=== PATIENT | female | born 1940 | race Caucasian/White ===

== ENCOUNTER 2019-12-24 20:48 | Inpatient (IN) | payer OTHER, SELFPAY ==
[2019-12-24 18:29] VITALS: BP 145/86
--- NOTE | 2019-12-24 18:52 | ED.GENMED ---
Addendum entered and electronically signed by Radha Gracia STPA 12/28/19 22:28:
Signed chart - Radha COOK
Original Note:
History of Present Illness
- General
Chief Complaint: Rectal Bleeding
Source: patient
Exam Limitations: none
Time Seen by Provider: 12/24/19 18:33
Nursing documentation reviewed up to this point in time: agreed with
- Travel History
Have you traveled to any high risk areas for coronavirus: No
Have you had any contact with someone who has COVID-19?: No
Do you have any symptoms of coronavirus? Fever > 100 degrees: No
- History of Present Illness
History of Present Illness:
12/24/19 18:52
This is a 79-year-old female with a history of hypertension and lactose intolerance he states that she went out to lunch 2 days ago and ate a [place] cheese quiche. Her friend also had the same food and did not get ill. Later that evening she
developed abdominal cramping and had a small bloody stool. She states that the stool was soft and not lisa diarrhea and she was having crampy right and left lower quadrant abdominal pain. Came to the ED last night and complained of abdominal
cramping and bloody stool and had unremarkable labs and underwent a CT scan of her abdomen pelvis which was consistent with colitis bowel wall thickening of the descending transverse and sigmoid colon with inflammatory stranding. She also had a
stool obtained which was sent for culture. She admits that she had been treated for a urinary tract infection 6-8 weeks ago with antibiotics. She denied a history of colitis and had her last colonoscopy 9 years ago which was unremarkable. Today she
called her doctor with persistent bloody stools and he recommended a prescription for moxifloxacin which she has started and has taken one dose. Last night she was put on pantoprazole. She denies any fever or chills. She denies any recent travel.
She has been able to hold down fluids.
12/24/19 18:54
Past History
- Past History
ED Past Medical History: Fibromyalgia, Other (Depression, anxiety, hypertension, hyperlipidemia, anemia, lactose intolerance.)
ED Past Surgical History: None
- Social History
Tobacco: Non-smoker
Alcohol: None
Drug: None
Personal:
Living: with family
- Family History
Family History: Other. Negative: Diabetes, Hypertension, CAD
Review of Systems
- Review of Systems
All Other Systems: ROS reviewed and negative except as documented in HPI and ROS
Constitutional: Reports: chills. Denies: fever
Respiratory: Reports: no symptoms
Cardiac: Reports: no symptoms
ABD/GI: Reports: abdominal pain, bloody stools
: Reports: no symptoms
Phy Exam
- General Physical Exam
General Presentation: mild distress
General age: appears stated age
General Skin: warm
General Habitus: normal
General Mental: alert
- Eye Exam
Eye Exam: EOMI
- Cardiovascular Exam
Cardiovascular Exam: regular rate/rhythm, no edema, no gallop, no JVD, no murmur
- Pulmonary Exam
Pulmonary Exam: lungs clear, no respiratory distress, no rales, no wheezing
- Gastrointestinal Exam
Gastrointestinal Exam: normal bowel sounds, soft, other (Tenderness to palpation in all 4 quadrants but particularly left upper quadrant with questionable guarding questionable rebound)
- Neurological Exam
Neurological Exam: alert, no motor deficits, speech normal
- Skin Exam
Skin Exam: no rash
- Psychiatric Exam
Psychiatric Exam: normal mood/affect
Course
- *Covid-19 Testing
COVID-19 Testing: No
- Orders/Labs/Results
Orders:
Orders
12/24/19 18:52
STOOL [C difficile Antigen & Toxins] Urgent
JASMYN Source: Feces/Stool
Specimen Description:
0.9% Sodium Chloride 1000 ml [Nss] 1,000 ml IV BOLUS
12/24/19 19:15
Complete Blood Count/With Diff Urgent
Comprehensive Metabolic Panel Urgent
12/24/19 19:35
Admit/Transfer Patient As Directed
Level of Care: Inpatient admission
Assign to:: Telemetry
Physician / Group: Drew Nichols
Diagnosis: Sigmoid colitis, Blood in stool
Reason for Telemetry: Arrhythmia
Date to Stop Telemetry: 12/27/19
Time to Stop Telemetry: 11:00
Reason for Hospitalization: Sigmoid colitis, Blood in stool
Expected length of stay greater than two midnights?: Yes
ELOS- Estimated Length of Stay in days: 2
I certify the patient meets the requirements for IP care: Yes
12/24/19 19:38
EKG [Electrocardiogram (*1)] Routine
Reason for Study: QTc Monitoring
12/24/19 19:42
Add On- LAB Routine
Tests Added?: Lactic acid
12/24/19 20:00
LevoFLOXacin 500 MG/100 ML [Levaquin] 500 mg in 100 ml IV Q24H
MetroNIDAZOLE 500 MG/100 ML [Flagyl 500 mg] 100 ml IV Q8H
12/27/19 11:00
DC Protocol for Telemetry ONCE
Abnormal Lab Results
12/24/19 12/24/19
19:15 19:15
WBC 15.6 10^3/uL H 10^3/uL
(4.8-10.8)
Plt Count 109 10^3/uL L 10^3/uL
(130-400)
MPV 11.0 fL H fL
(7.4-10.4)
Abs Immat Gran (auto) 0.2 10^3/uL H 10^3/uL
(0-0.05)
Absolute Neuts (auto) 12.6 10^3/uL H 10^3/uL
(1.4-6.5)
Absolute Lymphs (auto) 0.9 10^3/uL L 10^3/uL
(1.2-3.4)
Absolute Monos (auto) 1.8 10^3/uL H 10^3/uL
(0.1-0.6)
Immature Gran % 1.5 % H %
(0-0.5)
Neutrophils % 81.1 % H %
(42.2-75.2)
Lymphocytes % 5.8 % L %
(20.5-51.1)
Monocytes % 11.4 % H %
(1.7-9.3)
Glucose 129 mg/dl H mg/dl
(65-99)
Total Protein 6.2 g/dl L g/dl
(6.3-8.2)
12/24/19 19:15
12/24/19 19:15
12/24/19 19:47
WBC is elevated 15,600. H&H is stable. Platelets are normal
- *Radiology
Radiology exam reviewed: CT Scan report reviewed (CT scan from last evening consistent with colitis with inflammatory stranding and wall thickening of the transverse descending and sigmoid colon)
- *Pulse Oximetry
Patient hypoxic: no
- *EKG Interpretation by ED Provider
Rate: EKG- N/A
- *Critical Care Note
Total Time (30-74mins, 75-104mins- exclusive of procedures): Not Applicable
- *Staff Nuclear Weapons Officer Intrepretation
Rate: Staff Nuclear Weapons Officer- N/A
- Vital Signs
Initial and Last Documented VS:
Initial Vital Signs
Temp Pulse Resp BP Pulse Ox
99.7 F 104 20 145/86 98
12/24/19 18:29 12/24/19 18:29 12/24/19 18:29 12/24/19 18:29 12/24/19 18:29
Last Documented Vital Signs
Temp Pulse Resp BP Pulse Ox
99.7 F 104 20 145/86 98
12/24/19 18:29 12/24/19 18:29 12/24/19 18:29 12/24/19 18:29 12/24/19 18:29
Medical Decision/Update
- Medical Decison/Update
Notes:
She has persistent bloody stools and persistent abdominal cramping and diffuse tenderness. She has systemic symptoms without fever. I will recommend admission to the hospital for IV antibiotics and hydration. This could be C. difficile since she had
antibiotics for UTI approximately 6 weeks ago. It could be another bacterial pathogen.
Departure
- Departure
Final Disposition: Admit
Date of Disposition: 12/24/19
Time of Disposition: 19:18
Admit to: Med/Surg
Admit to doctor: Dr Drew Nichols
Patient with high blood pressure during this ER visit?: No
Condition: Good
Covid-19: Not Applicable
Diagnosis:
acute colitis with rectal bleeding
[2019-12-24 19:12] VITALS: BMI 36.6
[2019-12-24] MEDS: NSS 1000 IV (19:15)
[2019-12-24 19:23] LABS: % Basophils 0.1 % (0-2); % Eosinophils 0.1 % (0-6); % Immature Granulocytes 1.5 % (0-0.5); % Lymphocytes 5.8 % (20.5-51.1); % Monocytes 11.4 % (1.7-9.3); % Neutrophils 81.1 % (42.2-75.2); Absolute Immature Granulocytes 0.2 10^3/uL (0-0.05); Absolute Lymphocytes 0.9 10^3/uL (1.2-3.4); Absolute Monocytes 1.8 10^3/uL (0.1-0.6); Absolute Neutrophils 12.6 10^3/uL (1.4-6.5); Hematocrit 41.2 % (37.0-47.0); Hemoglobin 13.7 g/dL (12.0-16.0); Mean Corp Hgb Conc. 33.3 g/dL (33.0-37.0); Mean Corpuscular Volume 87.1 fL (81.0-99.0); Nucleated Red Blood Cells % 0 %; Platelet Count 109 10^3/uL (130-400); Red Blood Cell Count 4.73 10^6/uL (4.20-5.40); Red Cell Dist. Width 14.3 % (11.5-14.5); White Blood Cell Count 15.6 10^3/uL (4.8-10.8)
[2019-12-24 19:34] LABS: ALT (SGPT) 30 U/L (0-35); AST (SGOT) 33 U/L (14-36); Albumin 4.1 g/dl (3.5-5.0); Alkaline Phosphatase 75 U/L (38-126); Blood Urea Nitrogen 13 mg/dl (7-17); Calcium 8.8 mg/dl (8.4-10.2); Carbon Dioxide 25 mmol/L (22-30); Chloride 103 mmol/L (98-107); Estimated Creatinine Clearance 64 ml/min; Glomerular Filtration Rate > 60.0; Glucose 129 mg/dl (65-99); Potassium 3.8 mmol/L (3.5-5.1); Sodium 136 mmol/L (135-145); Total Bilirubin 0.8 mg/dl (0.2-1.3); Total Protein 6.2 g/dl (6.3-8.2)
--- NOTE | 2019-12-24 19:44 | PN.HOSP.TC ---
Addendum entered and electronically signed by Drew Nichols MD 12/24/19 20:44:
Seen and examined independently
Agreed with assessment and plan by Enid Flannery, further comments as below.
79-year-old female presented for new onset of diarrhea, lower abdominal pain localizing on left lower quadrant, blood in stool for last 24-36 hours. No reported fever. No previous history of any GI bleed. C scope in 2008 showed internal hemorrhoids
and polyps only.
HEENT: No pallor, cyanosis, or jaundice. Throat clear.
NECK: Supple. No JVD.
RESPIRATORY: Lungs clear to auscultation.
CVS: S1, S2 normal. RRR. No murmur, rub or gallop.
ABDOMEN: Soft, non-tender. No distension. BS+/normal.
EXTREMITIES: No peripheral cyanosis or edema.
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 No focal deficits.
Acute sigmoid colitis
Sepsis - Tachycardia and Elevated WBC
Blood in stool
-CT abdomen pelvis showed sig colon inflammation
- stool culture pending
- C-diff pending
- Cover with levo and flagyl
- Hbg stable - diarrhea becoming more blood dominant
- GI consulted.
Original Note:
Today's Communication/Plan
- -
Admit
Dictation # [id number]
Assessment / Plan
- Assessment / Plan
Please see dictated H&P
Sepsis criteria met with tachycardia and leukocytosis, secondary to Colitis vs. Diverticulitis w/diverticular bleeding: Continue Levaquin/Flagyl. Allow clears liquids Consult GI
Left kidney mass, increasing in size compared to prior studies concerning for renal cell carcinoma: Workup as outpatient
Essential Hypertension, BP stable: Continue Norvasc with hold parameters
Hyperlipidemia: Hold statin
GERD: Continue Protonix
Osteoarthritis: Hold Celebrex due to bleeding
Anxiety: Continue nortriptyline and lorazepam
DVT proph: SCDS
Code Status: Full Code
Anticipated Discharge: > 48 hours
Objective Data
- -
Labs:
Laboratory Results
12/24/19 12/24/19
19:15 19:15
WBC 15.6 H
Hgb 13.7
Hct 41.2
Plt Count 109 L
Sodium 136
Potassium 3.8
Chloride 103
Carbon Dioxide 25
BUN 13
Creatinine 0.7
Glucose 129 H
Calcium 8.8
Total Bilirubin 0.8
AST 33
ALT 30
Alkaline Phosphatase 75
Vital Signs:
Vital Signs
Temp Pulse Resp BP Pulse Ox
99.7 F 104 20 145/86 98
12/24/19 18:29 12/24/19 18:29 12/24/19 18:29 12/24/19 18:29 12/24/19 18:29
[2019-12-24] MEDS: FLAGYL 500 MG 100 IV (19:52)
[2019-12-24 20:25] LABS: Lactic Acid 0.9 mmol/L (0.7-2.0)
[2019-12-24 21:15] VITALS: BP 159/70
[2019-12-24 21:16] VITALS: BMI 36.8
[2019-12-24] MEDS: LR 1000 IV (22:00)
[2019-12-24] MEDS: LEVAQUIN 100 IV (22:01)
--- NOTE | 2019-12-24 22:57 | PTCARENOTE ---
Pt admitted from ED with recent, frequent bloody stool with clots. Hgb stable. IV fluids and ABX infusing. oriented to unit.
[2019-12-24] MEDS: DILAUDID 0.5 MG IV (23:31)
[2019-12-24 23:36] VITALS: BP 149/71
[2019-12-25 03:28] VITALS: BP 132/69
[2019-12-25] MEDS: FLAGYL 500 MG 100 IV ×3 (03:28→19:51)
[2019-12-25] MEDS: TYLENOL 650 MG PO ×3 (03:48→21:35)
[2019-12-25 06:00] VITALS: BMI 36.8
[2019-12-25 06:56] LABS: Hematocrit 37.1 % (37.0-47.0); Hemoglobin 12.3 g/dL (12.0-16.0); Mean Corp Hgb Conc. 33.2 g/dL (33.0-37.0); Mean Corpuscular Hgb 29.1 pg (27.0-31.0); Mean Corpuscular Volume 87.9 fL (81.0-99.0); Red Blood Cell Count 4.22 10^6/uL (4.20-5.40); Red Cell Dist. Width 14.4 % (11.5-14.5); White Blood Cell Count 14.5 10^3/uL (4.8-10.8)
[2019-12-25 07:14] LABS: Blood Urea Nitrogen 9 mg/dl (7-17); Carbon Dioxide 25 mmol/L (22-30); Chloride 104 mmol/L (98-107); Estimated Creatinine Clearance 75 ml/min; Glomerular Filtration Rate > 60.0; Glucose 95 mg/dl (65-99); Potassium 3.4 mmol/L (3.5-5.1); Sodium 138 mmol/L (135-145)
[2019-12-25 07:24] VITALS: BP 150/78
--- NOTE | 2019-12-25 07:25 | PTCARENOTE ---
Cdiff spec obtained already in ED. Current orderd cancelled.
[2019-12-25] MEDS: VISBIOME 1 CAP PO (07:51)
[2019-12-25] MEDS: PROTONIX IV 40 MG IV (07:51)
[2019-12-25] MEDS: NSS (PRESERVATIVE FREE) 10 ML IV (07:51)
[2019-12-25] MEDS: FLUSH (NSS) 2 FLUSH IV ×3 (07:51→16:04)
[2019-12-25 08:00] LABS: Platelet Count 90 10^3/uL (130-400)
--- NOTE | 2019-12-25 08:45 | CON.GI ---
Consultation
- -
Date/Time Consultation Requested: 12/25/19
Date/Time Consultation Performed: 12/25/19
Requesting Provider: Rivera Nichols
Performing Provider: Bernarda Hopson
Reason for Consultation: bloody diarrhea
Medical History
- Chief Complaint / HPI
Chief Complaint: bloody diarrhea
History of Present Illness:
This note was created using a voice recognition software and please excuse any apparent errors.
Manav is a 79-year-old female with history of hypertension who was otherwise in her normal state of health when 2 days ago she ate a [place] cheese quiche. Her friend had the same food and did not get ill. Later that evening she developed
abdominal cramping and had a small bloody stool. Stool was soft. Lower abdominal cramping. Patient went to the emergency room had a CT scan which was consistent with sigmoid and rectal colitis with a possible active source of bleeding. She was
discharged home on pantoprazole. She came back to the emergency room after discussing it with her primary. She did have a urinary tract infection on antibiotics about 8 weeks ago. No history of colitis and her last colonoscopy was in 2008. No
diverticulosis mentioned. One small cecal polyp. She denies any fever or chills, no recent travel.
In the emergency room showed a leukocytosis of 16,000, platelets of 109, hemoglobin 13.7, BUN 13, creatinine 0.7. Patient was C. difficile negative and started on Levaquin and Flagyl. Temperature was 99.7 and she was tachycardic.
Since she has been hospitalized she is improving. No further BMs since admission. Tenderness has improved but not resolved. Tolerating clear liquids. No significant drop in hgb.
- Past Medical History
Past Medical History: Fibromyalgia, GERD, Psychiatric
Past Surgical History: None
- Social History
Tobacco: Non-Smoker
Alcohol: None
Drug: None
Personal:
Living: With Family
Employment: Retired
- Family History
Family History: CAD, Diabetes
- Allergies / Home Medications
Allergy/AdvReac Type Severity Reaction Status Date / Time
amoxicillin [Amoxicillin] Allergy Hives Verified 12/24/19 18:29
oxycodone HCl Allergy Itching Verified 12/24/19 18:29
[From OxyContin]
shrimp Allergy Hives Verified 12/24/19 18:29
Medication Instructions Recorded
Bifidobacterium Infantis [Align] 4 mg PO DAILY 12/31/15
Cholecalciferol (Vitamin D3) 2,000 unit PO DAILY 12/31/15
[Vitamin D3 (cholecalciferol):]
Esomeprazole Magnesium [Nexium] 20 mg PO DAILY 12/31/15
Amlodipine Besylate [Norvasc] 5 mg PO QPM 09/01/17
Calcium Carbonate/Vitamin D3 1 each PO DAILY 09/01/17
[Calcium 600-Vit D3 800 Tablet]
Docusate Sodium [Colace:] 100 mg PO PRN PRN 09/01/17
Furosemide [Lasix:] 20 mg PO PRN PRN 09/01/17
Multivitamin [Theragran:] 1 tablet PO DAILY 09/01/17
Nortriptyline [Pamelor:] 20 mg PO QPM 09/01/17
Sennosides [Senokot:] 2 tablet PO PRN PRN 09/01/17
Simvastatin [Zocor:] 20 mg PO QPM 09/01/17
Ibuprofen [Advil] 400 mg PO PRN PRN #0 09/23/17
Lorazepam [Ativan:] 0.5 mg PO DAILYPRN PRN 12/24/19
Celecoxib [Celebrex:] 200 mg PO DAILY 12/25/19
Review of Systems
- -
History Source: Patient
Constitutional: Reports: No Symptoms
EENT: Reports: No Symptoms
Respiratory: Reports: No Symptoms
Cardiac: Reports: No Symptoms
Abdomen/GI: Reports: Abdominal Pain, Bloody Stools
: Reports: No Symptoms
Musculoskeletal: Reports: Joint Pain
Skin: Reports: No Symptoms
Neurological: Reports: No Symptoms
Endocrine: Reports: No Symptoms
Hematologic/Lymphatic: Reports: No Symptoms
- Vital Signs
Temp Pulse Resp BP Pulse Ox
98.6 F 90 20 150/78 95
12/25/19 07:24 12/25/19 07:24 12/25/19 07:24 12/25/19 07:24 12/25/19 07:24
Physical Exam
- Exam
General: Well Developed, Well Nourished, No Apparent Distress
HEENT: Normocephalic, Anicteric
Respiratory: Clear
Cardiac: S1/S2
Breast: Deferred by me
GI: Soft, Tender
Skin: Warm, Dry
Neuro: AO x 3
Psych: Calm
- Results
WBC 14.5 10^3/uL (4.8-10.8) H 12/25/19 05:04
Hgb 12.3 g/dL (12.0-16.0) 12/25/19 05:04
Hct 37.1 % (37.0-47.0) 12/25/19 05:04
MCV 87.9 fL (81.0-99.0) 12/25/19 05:04
Plt Count 90 10^3/uL (130-400) L 12/25/19 05:04
Absolute Neuts (auto) 12.6 10^3/uL (1.4-6.5) H 12/24/19 19:15
Sodium 138 mmol/L (135-145) 12/25/19 05:04
Potassium 3.4 mmol/L (3.5-5.1) L 12/25/19 05:04
Chloride 104 mmol/L (98-107) 12/25/19 05:04
Carbon Dioxide 25 mmol/L (22-30) 12/25/19 05:04
BUN 9 mg/dl (7-17) 12/25/19 05:04
Creatinine 0.6 mg/dL (0.6-1.0) 12/25/19 05:04
Calcium 8.0 mg/dl (8.4-10.2) L 12/25/19 05:04
Total Bilirubin 0.8 mg/dl (0.2-1.3) 12/24/19 19:15
AST 33 U/L (14-36) 12/24/19 19:15
ALT 30 U/L (0-35) 12/24/19 19:15
Alkaline Phosphatase 75 U/L (38-126) 12/24/19 19:15
Micro:
12/24/19, C. difficile negative
Diagnostic Image Results:
12/24/19 CT angiogram: Pronounced bowel wall thickening with mesenteric edema in the sigmoid and rectum consistent with colitis. Hyperattenuation in the low rectum on arterial phases which may be a site for active bleeding. No mention of
diverticulosis. 5 cm left kidney cystic mass suspicious for renal cell.
Prior GI Procedures:
EGD:
Colonoscopy: Rosaline Logan: Good prep to the cecum. Internal hemorrhoids and 4 mm cecal polyp
Assessment / Plan
- -
Sridevi is a 79yoF with no significant GI or cardiac issues who developed significant lower abdominal cramping followed by diarrhea that turned bloody. Admitted with temp 99, leukocytosis and CT confirmed sigmoid/rectal colitis who is improving on
clear liquids and IV antibiotics.
#1 abdominal pain and bloody diarrhea - infectious vs ischemic (less likely); unlikely IBD.
- agree with bowel rest with clear liquids, can advance to fulls for dinner if doing well
- continue IV antibiotics, if continues to do well transition to oral
- cdiff negative, awaiting culture
- will need a follow up colonoscopy with Dr. Waggoner in 6-8wks to ensure no underlying pathology
- monitor hgb and once daily ppi is fine
- possible d/c tomorrow
Data Reviewed
- -
CT Scan: Image Personally Visualized and interpreted
Old Records: Reviewed
Time spent with patient (in minutes): 15
-
- -
Thank you for consultation and allowing me to participate in the patient's care. Please call the special education professional GI physician during the after hours with any questions or concerns.
--- NOTE | 2019-12-25 09:43 | PN.HOSP.TC ---
Today's Communication/Plan
- -
monitor vitals
see plan
GI to see
liq diet for now
get bcx
cw abx
Assessment / Plan
- Assessment / Plan
Sepsis criteria met with tachycardia and leukocytosis, secondary to Colitis
Continue Levaquin/Flagyl. bcx never ordered on admission; i ordered them now
Allow clears liquids
Consult GI
last cscope 9years ago per patient
Left kidney mass, increasing in size compared to prior studies concerning for renal cell carcinoma: Workup as outpatient
Essential Hypertension, BP stable: Continue Norvasc with hold parameters
Throbocytopenia
monitor; likely from sepsis
Hyperlipidemia: Hold statin
GERD: Continue Protonix
Osteoarthritis: Hold Celebrex due to bleeding; reports was taking once a day
Anxiety: Continue nortriptyline and lorazepam
DVT proph: SCDS
Code Status: Full Code
Anticipated Discharge: 24 - 48 hours
Subjective/Interval History
- -
Patient abdominal pain is better.
Objective Data
- -
Labs:
Laboratory Results
12/25/19 12/25/19
05:04 05:04
WBC 14.5 H
Hgb 12.3
Hct 37.1
Plt Count 90 L
Sodium 138
Potassium 3.4 L
Chloride 104
Carbon Dioxide 25
BUN 9
Creatinine 0.6
Glucose 95
Calcium 8.0 L
Vital Signs:
Vital Signs
Temp Pulse Resp BP Pulse Ox
98.6 F 90 20 150/78 95
12/25/19 07:24 12/25/19 07:24 12/25/19 07:24 12/25/19 07:24 12/25/19 08:00
I&O
12/24/19 12/25/19 12/26/19
06:59 06:59 06:59
Intake Total 480
Balance 480
Review of Systems
- -
History Source: Patient
All other systems: Reviewed and negative
Physical Exam
- -
General: No Apparent Distress, Comfortable
HEENT: Anicteric, [place] Conjunctivae
Respiratory: Clear to Auscultation. Negative: Wheezes, Crackles
Cardiac: Regular Rhythm, S1/S2. Negative: Murmur
GI: Soft, Nondistended, Normal Bowel Sounds, Tender
Genito-urinary: Negative: Granados
Musculoskeletal: Negative: Edema, Right Lower Extrem, Edema, Left Lower Extrem
Neuro: Awake, Alert, Oriented, AO x 3
Psych: Calm
Data Reviewed
- -
Labs: Labs Reviewed by me, Discussed with Nurse, Discussed with Patient
[2019-12-25] MEDS: KCL 10 MEQ PO (09:53)
[2019-12-25] MEDS: DILAUDID 0.5 MG IV ×3 (10:27→20:00)
[2019-12-25 11:35] VITALS: BP 127/79
[2019-12-25] MEDS: LR 1000 IV (13:57)
[2019-12-25 15:04] VITALS: BP 149/74
--- NOTE | 2019-12-25 16:13 | CM ---
Reviewed chart. Met with patient and her at bedside. They live in a 2-story home with 3 steps to enter and 5 steps to the living area. Patient is independent at baseline with ADLs and ambulation using no device/DME.
Patient has, but doesn't use, a cane from previous knee replacements. She had a walker but gave it to someone else to use. For her first knee replacement, she went home with [facility]. For her second, she did outpatient therapy. No history of SNF.
Patient confirmed that she uses [facility] ([place]). Her PCP is Dr. Solitario Barajas. No discharge planning needs identified at this point. Will continue to follow and assist as needed.
[2019-12-25] MEDS: PAMELOR 20 MG PO (17:25)
[2019-12-25] MEDS: NORVASC 5 MG PO (17:25)
[2019-12-25 19:46] VITALS: BP 144/79
[2019-12-25] MEDS: LEVAQUIN 100 IV (21:38)
[2019-12-25 23:10] VITALS: BP 132/78
[2019-12-26] MEDS: FLAGYL 500 MG 100 IV ×3 (03:28→19:26)
[2019-12-26] MEDS: TYLENOL 650 MG PO ×5 (03:28→22:30)
[2019-12-26 03:53] VITALS: BP 141/81
[2019-12-26] MEDS: LR IV (05:41)
[2019-12-26 06:23] LABS: % Basophils 0.2 % (0-2); % Eosinophils 0.1 % (0-6); % Immature Granulocytes 1.2 % (0-0.5); % Lymphocytes 11.3 % (20.5-51.1); % Monocytes 9.9 % (1.7-9.3); % Neutrophils 77.3 % (42.2-75.2); Absolute Immature Granulocytes 0.1 10^3/uL (0-0.05); Absolute Lymphocytes 1.2 10^3/uL (1.2-3.4); Absolute Monocytes 1.1 10^3/uL (0.1-0.6); Absolute Neutrophils 8.2 10^3/uL (1.4-6.5); Hematocrit 37.6 % (37.0-47.0); Hemoglobin 12.2 g/dL (12.0-16.0); Mean Corp Hgb Conc. 32.4 g/dL (33.0-37.0); Mean Corpuscular Hgb 28.8 pg (27.0-31.0); Mean Corpuscular Volume 88.7 fL (81.0-99.0); Nucleated Red Blood Cells % 0 %; Platelet Count 103 10^3/uL (130-400); Red Blood Cell Count 4.24 10^6/uL (4.20-5.40); Red Cell Dist. Width 14.5 % (11.5-14.5); White Blood Cell Count 10.6 10^3/uL (4.8-10.8)
[2019-12-26 06:33] LABS: Blood Urea Nitrogen 6 mg/dl (7-17); Calcium 8.3 mg/dl (8.4-10.2); Carbon Dioxide 26 mmol/L (22-30); Chloride 104 mmol/L (98-107); Estimated Creatinine Clearance 75 ml/min; Glomerular Filtration Rate > 60.0; Glucose 95 mg/dl (65-99); Potassium 3.6 mmol/L (3.5-5.1); Sodium 138 mmol/L (135-145)
[2019-12-26] MEDS: PROTONIX IV 40 MG IV (07:51)
[2019-12-26] MEDS: NSS (PRESERVATIVE FREE) 10 ML IV (07:51)
[2019-12-26] MEDS: FLUSH (NSS) 2 FLUSH IV ×2 (07:53→12:25)
[2019-12-26] MEDS: VISBIOME 1 CAP PO (07:53)
[2019-12-26 07:55] VITALS: BP 153/83
--- NOTE | 2019-12-26 09:48 | PN.HOSP.TC ---
Today's Communication/Plan
- -
monitor vitals
see plan
advance diet
cw abx
blood cx pending
dc within 24 hrs
Assessment / Plan
- Assessment / Plan
General: No Apparent Distress, Comfortable
HEENT: Anicteric, [place] Conjunctivae
Respiratory: Clear to Auscultation. Negative: Wheezes, Crackles
Cardiac: Regular Rhythm, S1/S2. Negative: Murmur
GI: Soft, Nondistended, Normal Bowel Sounds, Tender
Genito-urinary: Negative: Granados
Musculoskeletal: Negative: Edema, Right Lower Extrem, Edema, Left Lower Extrem
Neuro: Awake, Alert, Oriented, AO x 3
Psych: Calm
Suspected Sepsis criteria met with tachycardia and leukocytosis, secondary to Colitis
Continue Levaquin/Flagyl. bcx never ordered on admission; i ordered them which are pending
tolerated full liquids; advance diet with lunch to low res
Consult GI
last cscope 9years ago per patient;will need a follow up colonoscopy with Dr. Waggoner in 6-8wks to ensure no underlying pathology
still has some abdominal pain. would see how patient does througout the day. Bcx are pending
Left kidney mass, increasing in size compared to prior studies concerning for renal cell carcinoma: Workup as outpatient
Essential Hypertension, BP stable: Continue Norvasc with hold parameters
Throbocytopenia
monitor; likely from sepsis
Hyperlipidemia: Hold statin
GERD: Continue Protonix
Osteoarthritis: Hold Celebrex due to bleeding; reports was taking once a day
Anxiety: Continue nortriptyline and lorazepam
DVT proph: SCDS
Code Status: Full Code
Anticipated Discharge: Within 24 hours
Subjective/Interval History
- -
No fever overnight. But still has some abdominal discomfort.
Objective Data
- -
Labs:
Laboratory Results
12/26/19 12/26/19
05:11 05:11
WBC 10.6
Hgb 12.2
Hct 37.6
Plt Count 103 L
Sodium 138
Potassium 3.6
Chloride 104
Carbon Dioxide 26
BUN 6 L
Creatinine 0.6
Glucose 95
Calcium 8.3 L
Vital Signs:
Vital Signs
Temp Pulse Resp BP Pulse Ox
98.5 F 87 16 153/83 95
12/26/19 07:55 12/26/19 07:55 12/26/19 07:55 12/26/19 07:55 12/26/19 07:55
I&O
12/25/19 12/26/19 12/27/19
06:59 06:59 06:59
Intake Total 480 3875
Balance 480 3875
Review of Systems
- -
History Source: Patient
All other systems: Reviewed and negative
Data Reviewed
- -
Labs: Labs Reviewed by me, Discussed with Nurse, Discussed with Patient
[2019-12-26 11:51] VITALS: BP 149/71
[2019-12-26 15:36] VITALS: BP 149/62
[2019-12-26] MEDS: NORVASC 5 MG PO (16:52)
[2019-12-26] MEDS: PAMELOR 20 MG PO (16:55)
--- NOTE | 2019-12-26 17:23 | PN.GI.CBS2 ---
Today's Communication / Plan
- -
no changes
Assessment / Plan
- -
Sridevi is a 79yoF with no significant GI or cardiac issues who developed significant lower abdominal cramping followed by diarrhea that turned bloody. Admitted with temp 99, leukocytosis and CT confirmed sigmoid/rectal colitis who is improving on
clear liquids and IV antibiotics.
#1 abdominal pain and bloody diarrhea - infectious vs ischemic (less likely); unlikely IBD.
- tolerating low residue diet - told her to do plain, low residue for about 10days
- continue IV antibiotics, if continues to do well transition to oral for total of 10days
- GI follow up in 1 month
- cdiff negative, awaiting culture - not sent
- will need a follow up colonoscopy with Dr. Waggoner in 6-8wks to ensure no underlying pathology
- monitor hgb and once daily ppi is fine
- likely d/c tomorrow
Subjective
- Subjective
eating well. small tiny piece of blood in stool today. abdominal pain improved
Objective
- Data Reviewed
Laboratory Data:
Laboratory Results
12/26/19 05:11
12/26/19 05:11
Laboratory Results
Total Bilirubin 0.8 mg/dl (0.2-1.3) 12/24/19 19:15
AST 33 U/L (14-36) 12/24/19 19:15
ALT 30 U/L (0-35) 12/24/19 19:15
Alkaline Phosphatase 75 U/L (38-126) 12/24/19 19:15
Vital Signs and I&O:
Vital Signs
Temp Pulse Resp BP Pulse Ox
98.5 F 80 16 149/62 97
12/26/19 15:36 12/26/19 15:36 12/26/19 15:36 12/26/19 15:36 12/26/19 15:36
I&O
12/25/19 12/26/1920
06:59 06:59 06:59
Intake Total 316 6145
Balance 480 0705
Physical Exam
- Physical Exam
HEENT: Anicteric
Pulmonary: Clear
GI: Soft, Non Distended, Non Tender
Extremities: No Edema
Neuro: Non Focal
[2019-12-26 19:45] VITALS: BP 130/63
[2019-12-26] MEDS: LEVAQUIN IV ×2 (22:25→22:59)
--- NOTE | 2019-12-26 23:03 | PTCARENOTE ---
Pt refused HS Dose of Levaquin, PT states her Hand and arm itches, This RN flushed and checked IV site, and restarted ABX at a slower rate, PT continued to C/O 'Itching' in hand and arm, No redness or rash present. 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 Will
continue to monitor.
[2019-12-26 23:49] VITALS: BP 162/78
[2019-12-27 03:50] VITALS: BP 130/64
[2019-12-27] MEDS: FLAGYL 500 MG 100 IV ×2 (03:52→11:33)
[2019-12-27 06:46] LABS: % Basophils 0.1 % (0-2); % Eosinophils 0.3 % (0-6); % Immature Granulocytes 1.8 % (0-0.5); % Lymphocytes 17.6 % (20.5-51.1); % Monocytes 11.1 % (1.7-9.3); % Neutrophils 69.1 % (42.2-75.2); Absolute Immature Granulocytes 0.1 10^3/uL (0-0.05); Absolute Lymphocytes 1.3 10^3/uL (1.2-3.4); Absolute Monocytes 0.8 10^3/uL (0.1-0.6); Absolute Neutrophils 4.9 10^3/uL (1.4-6.5); Hematocrit 38.3 % (37.0-47.0); Hemoglobin 12.8 g/dL (12.0-16.0); Mean Corp Hgb Conc. 33.4 g/dL (33.0-37.0); Mean Corpuscular Hgb 29.2 pg (27.0-31.0); Mean Corpuscular Volume 87.2 fL (81.0-99.0); Mean Platelet Volume 11.1 fL (7.4-10.4); Nucleated Red Blood Cells % 0 %; Platelet Count 108 10^3/uL (130-400); Red Blood Cell Count 4.39 10^6/uL (4.20-5.40); Red Cell Dist. Width 14.1 % (11.5-14.5); White Blood Cell Count 7.1 10^3/uL (4.8-10.8)
[2019-12-27 06:55] LABS: Blood Urea Nitrogen 7 mg/dl (7-17); Calcium 8.5 mg/dl (8.4-10.2); Carbon Dioxide 28 mmol/L (22-30); Chloride 104 mmol/L (98-107); Estimated Creatinine Clearance 75 ml/min; Glomerular Filtration Rate > 60.0; Glucose 103 mg/dl (65-99); Potassium 3.3 mmol/L (3.5-5.1); Sodium 139 mmol/L (135-145)
[2019-12-27] MEDS: TYLENOL 650 MG PO (07:37)
[2019-12-27] MEDS: KCL 40 MEQ PO (07:39)
[2019-12-27] MEDS: PROTONIX IV 40 MG IV (07:39)
[2019-12-27] MEDS: NSS (PRESERVATIVE FREE) 10 ML IV (07:39)
[2019-12-27] MEDS: VISBIOME 1 CAP PO (07:39)
--- NOTE | 2019-12-27 07:40 | PN.GI.CBS2 ---
Today's Communication / Plan
- -
Ok from GI perspective for hospital d/c.
She will f/u with Dr. Waggoner and get outpatient colonoscopy in 8 wks.
GI will sign off but available if needed
Assessment / Plan
- -
Sridevi is a 79yoF with no significant GI or cardiac issues who developed significant lower abdominal cramping followed by diarrhea that turned bloody. Admitted with temp 99, leukocytosis and CT confirmed sigmoid/rectal colitis who is improving on
clear liquids and IV antibiotics.
#1 abdominal pain and bloody diarrhea - infectious vs ischemic (less likely); unlikely IBD.
- Tolerating low residue diet
- continue IV antibiotics, if continues to do well transition to oral for total of 10days
- GI follow up in 1 month, known to Dr. Waggoner
- Cdiff negative
- will need a follow up colonoscopy with Dr. Waggoner in 6-8wks to ensure no underlying pathology
- monitor hgb and once daily ppi is fine
Ok from GI perspective for hospital d/c. GI will sign off but available if needed
Subjective
- Subjective
Tolerating low residue diet. Denies abd pain, N/V or further diarrhea. In fact no BM since being in ER.
Objective
- Data Reviewed
Laboratory Data:
Laboratory Results
12/27/19 05:03
12/27/19 05:03
Laboratory Results
Total Bilirubin 0.8 mg/dl (0.2-1.3) 12/24/19 19:15
AST 33 U/L (14-36) 12/24/19 19:15
ALT 30 U/L (0-35) 12/24/19 19:15
Alkaline Phosphatase 75 U/L (38-126) 12/24/19 19:15
Vital Signs and I&O:
Vital Signs
Temp Pulse Resp BP Pulse Ox
98.2 F 79 20 130/64 94
12/27/19 03:50 12/27/19 03:50 12/27/19 03:50 12/27/19 03:50 12/26/19 23:49
I&O
12/26/19 12/27/19 12/28/19
06:59 06:59 06:59
Intake Total 3875 2400
Balance 3875 2400
Physical Exam
- Physical Exam
GEN: No acute distress, conversant, pleasant
HEENT: anicteric, extraocular movements intact, clear oropharynx without exudates
GI: soft, mildly-distended, not tender to palpation, normal active bowel sounds, no hepatosplenomegaly
EXT: warm, well perfused, no edema bilaterally
NEURO: AAOx3, non-focal
[2019-12-27 07:50] VITALS: BP 149/79
--- NOTE | 2019-12-27 09:41 | PN.DC.HOSP ---
Assessment / Plan
- Assessment / Plan
General: No Apparent Distress, Comfortable
HEENT: Anicteric, [place] Conjunctivae
Respiratory: Clear to Auscultation. Negative: Wheezes, Crackles
Cardiac: Regular Rhythm, S1/S2. Negative: Murmur
GI: Soft, Nondistended, Normal Bowel Sounds, Tender
Genito-urinary: Negative: Gran[place]
Musculoskeletal: Negative: Edema, Right Lower Extrem, Edema, Left Lower Extrem
Neuro: Awake, Alert, Oriented, AO x 3
Psych: Calm
Suspected Sepsis criteria met with tachycardia and leukocytosis, secondary to Colitis
Blood cultures are negative for growth so far. Patient stated of some itching sensation with Levaquin �2 days. Add to allergy list and Switched to Bactrim on discharge
Tolerating low residue diet.
Consult GI
last cscope 9years ago per patient;will need a follow up colonoscopy with Dr. Waggoner in 6-8wks to ensure no underlying pathology
pain or vomiting.
Left kidney mass, increasing in size compared to prior studies concerning for renal cell carcinoma: Workup as outpatient
Essential Hypertension, BP stable: Continue Norvasc with hold parameters
Throbocytopenia
monitor; likely from sepsis
Hyperlipidemia: Hold statin
GERD: Continue Protonix
Osteoarthritis: Hold Celebrex due to bleeding; reports was taking once a day
Anxiety: Continue nortriptyline and lorazepam
DVT proph: SCDS
Code Status: Full Code
Disposition discharged to home with follow up outpatient with Dr. Waggoner and with primary care doctor in regards for left kidney mass
More than 30 minutes spent in discharge including
Final examination of the patient
Summarizing hospital stay
Instructions for continuing care to all relevant caregivers
Preparation of discharge records, prescriptions, and referral forms
Total time spent (in minutes): 40
Anticipated Discharge: Today
--- NOTE | 2019-12-27 10:49 | CM ---
Chart reviewed.
Pt for d/c today.
Met with pt at bedside.
No d/c needs identified at this time.
IMM provided and discussed.
Signed and placed in chart.
No questions.
Plan- d/c to home
--- NOTE | 2019-12-27 11:05 | DS.TRANS ---
Addendum entered and electronically signed by Derian Gil MD 12/27/19 11:40:
dc [id number]
Original Note:
DC Summary - [employer]
- -
Discharge Instructions:
Discharge Diagnosis Dx (coilitis)
Diet Low Residue
Activity As tolerated
Driving Restrictions None
Blood Work Not applicable
Other Tests Not applicable
Other Services Not applicable
Wound Care Not applicable
Bathing Restrictions None
Specialty Instructions Not applicable
Instructions:
Stand-Alone Forms:
Additional Instructions:
Please follow up left renal cystic lesion with your primary care doctor with either ultrasound or CT abdomen in 4-6 weeks.
Follow up with Dr. Waggoner for colonoscopy.
Referrals:
Solitario Barajas MD [Family Provider] -
Chris Waggoner MD [Active] - in two to four weeks (colitis)
Changes to Home Medications: No
Discharge Medications:
DC Medications w/original date entered in [employer]
Bifidobacterium Infantis [Align] 4 mg PO DAILY 12/31/15
Cholecalciferol (Vitamin D3) [Vitamin D3 (cholecalciferol):] 2,000 unit PO DAILY 12/31/15
Esomeprazole Magnesium [Nexium] 20 mg PO DAILY 12/31/15
Amlodipine Besylate [Norvasc] 5 mg PO QPM 09/01/17
Calcium Carbonate/Vitamin D3 [Calcium 600-Vit D3 800 Tablet] 1 each PO DAILY 09/01/17
Furosemide [Lasix:] 20 mg PO PRN PRN 09/01/17
Multivitamin [Theragran:] 1 tablet PO DAILY 09/01/17
Nortriptyline [Pamelor:] 20 mg PO QPM 09/01/17
Sennosides [Senokot:] 2 tablet PO PRN PRN 09/01/17
Simvastatin [Zocor:] 20 mg PO QPM 09/01/17
Lorazepam [Ativan:] 0.5 mg PO DAILYPRN PRN 12/24/19
Celecoxib [Celebrex:] 200 mg PO DAILY 12/25/19
Sulfamethox./Trimethoprim Ds [Bactrim Ds 800 mg/160 mg:] 1 tablet PO BID 8 Days #16 tablet 12/27/19
Home Medication Changes
Pending Results: No
--- NOTE | 2019-12-27 13:33 | PTCARENOTE ---
Discharge instructions reviewed with patient and spouse, understanding acknowledged; low residue dietary printout given to patient; IV site and telemetry removed; at time of this note patient transported via wheelchair to spouse's waiting car.
== END 2019-12-27 13:41 | disposition home or self-care (01) | DRG 392 ==
LOC: 2 NORTH 20:48
PROVIDERS: Internal Medicine; ADMITTING PHYSICIAN Hospitalist; ATTENDING PHYSICIAN Hospitalist; CONSULT PHYSICIAN Internal Medicine; EMERGENCY PHYSICIAN Emergency Medicine; FAMILY PHYSICIAN Family Medicine
DX: K52.9 Noninfective gastroenteritis and colitis, unspecified (principal); M79.7 Fibromyalgia; I10 Essential (primary) hypertension; F41.9 Anxiety disorder, unspecified; E78.5 Hyperlipidemia, unspecified; E66.01 Morbid (severe) obesity due to excess calories; N28.89 Other specified disorders of kidney and ureter; K21.9 Gastro-esophageal reflux disease without esophagitis; M19.90 Unspecified osteoarthritis, unspecified site; Z68.36 Body mass index [BMI] 36.0-36.9, adult; Z88.0 Allergy status to penicillin
CPT/HCPCS: 74174; 80048; 80053; 83605; 83690; 85025; 85027; 85610; 85730; 86850; 86900; 86901; 87040; 87045; 87046; 87070; 87077; 87147; 87324; 87328; 87329; 87427; 87449; 93005; 96374; 96375; 99284; 99285; Q9967

== ENCOUNTER → 2023-05-01 07:32 | Outpatient (REF) | payer OTHER, SELFPAY | LOC: DHCBC/DCA 07:32 | PROVIDERS: ATTENDING PHYSICIAN Nurse Practitioner; FAMILY PHYSICIAN Family Medicine | DX: I10 Essential (primary) hypertension (principal); R06.02 Shortness of breath | CPT/HCPCS: 78452; 93017; A9500; J2785 ==

== ENCOUNTER → 2023-09-29 09:57 | Outpatient (REF) | payer OTHER, SELFPAY | LOC: HWRAD 09:57 | PROVIDERS: ATTENDING PHYSICIAN Family Medicine | DX: M85.80 Other specified disorders of bone density and structure, unspecified site (principal); Z13.820 Encounter for screening for osteoporosis; Z12.31 Encounter for screening mammogram for malignant neoplasm of breast | CPT/HCPCS: 77063; 77067; 77080 ==

== ENCOUNTER → 2023-12-18 09:15 | Outpatient (REF) | payer OTHER, SELFPAY ==
[2023-12-18 09:45] LABS: INR 1.05; PT 13.7 Sec (11.4-14.6)
[2023-12-18 10:00] VITALS: BP 157/66; BP_SYST 70
[2023-12-18 10:04] LABS: Hematocrit 38.5 % (37.0-47.0); Hemoglobin 12.2 g/dL (12.0-16.0); Mean Corp Hgb Conc. 31.8 g/dL (33.0-37.0); Mean Corpuscular Hgb 26.6 pg (27.0-31.0); Mean Corpuscular Volume 83.7 fL (81.0-99.0); Platelet Count 41 10^3/uL (130-400); Red Blood Cell Count 4.66 10^6/uL (4.20-5.40); Red Cell Dist. Width 15.9 % (11.5-14.5); White Blood Cell Count 4.8 10^3/uL (4.8-10.8)
[2023-12-18 10:23] LABS: Absolute Neutrophils -Man Diff 1.5 10^3/uL (1.4-6.5); Band Neutrophils 0 % (0-3); Lymphocytes 55 % (20-51); Monocytes 13 % (2-9); Normal RBC Morphology No; Platelets Checked Yes; Segmented Neutrophils 32 % (42-75)
[2023-12-18 10:26] LABS: Ovalocytes 1+; Poikilocytosis 1+
[2023-12-18 10:27] LABS: Total Cells Counted 100
[2023-12-18 11:50] VITALS: BP 150/65
== END ==
LOC: RADI 09:15
PROVIDERS: ATTENDING PHYSICIAN Internal Medicine Hematology & Oncology
DX: D69.6 Thrombocytopenia, unspecified (principal); D72.821 Monocytosis (symptomatic); C64.2 Malignant neoplasm of left kidney, except renal pelvis
CPT/HCPCS: 88305; 88311; 88312; 36415; 38222; 77012; 85025; 85610; 88313

== ENCOUNTER → 2024-09-30 13:23 | Outpatient (REF) | payer OTHER, SELFPAY | LOC: HWWDC 13:23 | PROVIDERS: ATTENDING PHYSICIAN Family Medicine | DX: Z12.31 Encounter for screening mammogram for malignant neoplasm of breast (principal) | CPT/HCPCS: 77063; 77067 ==